=== PATIENT | male | born 1990 | race Caucasian/White ===

== ENCOUNTER 2022-12-15 16:10 | Emergency (ER) | payer BC ==
[~2022-12-15] VITALS: Ht 180.3 cm; Wt 118.2 kg
[2022-12-15 16:13] VITALS: TEMP 98.5
[2022-12-15 18:45] VITALS: BP 136/83; PULSE 76
== END 2022-12-15 19:00 | disposition home or self-care (01) ==
LOC: COL.ER 16:10
DX: S82.852A Displaced trimalleolar fracture of left lower leg, initial encounter for closed fracture (principal); Z28.310 Unvaccinated for COVID-19; W10.9XXA Fall (on) (from) unspecified stairs and steps, initial encounter
CPT/HCPCS: J2704